=== PATIENT | male | born 1950 | race African-American/Black ===

== ENCOUNTER 2017-03-02 15:46 | Inpatient (IN) | payer OTHER ==
[~2017-03-02] VITALS: Ht 180.3 cm; Wt 81.3 kg
[~2017-03-02 15:46] MED LIST: AMLODIPINE BESY10 MG PO; FLEXERIL10 MG; FLEXERIL10 MG PO; METHADONE1 MG/1 ML PO; METOPROLOL SUC100 MG PO; MOTRIN600 MG PO; MOTRIN800 MG PO; NAPROSYN500 MG PO; NORVASC10 MG PO; PERCOCET 5/31 TABLET PO; TRAMADOL HCL50 MG PO; ULTRAM50 MG PO; VICODIN 5-3001 EACH PO
[2017-03-02 18:29] LABS: HEMATOCRIT 27.7 % (38.0-50.0); MCH 25.2 PG (29.0-34.0); MCHC 32.9 G/DL (30.0-36.0); MCV 76.7 FL (86-99); PLATELET COUNT 286 K/uL (156-360); RBC DIS.WIDTH-CV 16.2 % (11.8-14.6); RBC DIS.WIDTH-SD 45.4 % (39-53); RED BLOOD COUNT 3.61 M/uL (4.00-5.50); WHITE BLOOD COUNT 10.8 K/uL (4.1-10.2)
[2017-03-02 18:48] LABS: CHLORIDE 99 mEq/L (99-109); POTASSIUM 3.5 mEq/L (3.7-5.4); SODIUM 133 mEq/L (136-147)
[2017-03-02 18:50] LABS: GLUCOSE 72 mg/dL (70-99)
[2017-03-02 18:51] LABS: ANION GAP 5 MEQ/L (2-14)
[2017-03-02 18:52] LABS: TOTAL BILIRUBIN 0.7 mg/dL (0.0-1.0)
[2017-03-02 18:54] LABS: ALKALINE PHOSPHATASE 86 IU/L (3-129); GFR ESTIMATE (CALCULATED) > 59 mL/min/
[2017-03-02 18:55] LABS: UREA NITROGEN (BUN) 9 mg/dL (9-23)
[2017-03-02 20:20] LABS: TROP-I INTERPRETATION NEGATIVE; TROPONIN-I < 0.01 ng/mL (0.0-0.30)
[2017-03-02 23:14] VITALS: BP 189/86
[2017-03-02 23:19] LABS: MAGNESIUM 1.9 mg/dl (1.3-2.7); SAMPLE HEMOLYSIS CHECK 0; SAMPLE ICTERIC CHECK 0; SAMPLE LIPEMIA CHECK 1
[2017-03-02 23:25] LABS: SERUM ETHYL ALCOHOL 12 mg/dL
[2017-03-03] VITALS (15 sets, daily range): BP systolic 160–185; BP diastolic 76–95
[2017-03-03 08:13] LABS: ADD MIUA? NO; BILIRUBIN NEGATIVE; BLOOD NEGATIVE; COLOR STRAW ((YELLOW)); GLUCOSE (STRIP) NEGATIVE; KETONES NEGATIVE; LEUKOCYTES NEGATIVE; NITRITE NEGATIVE; PROTEIN (STRIP) NEGATIVE; SPECIFIC GRAVITY 1.005 (1.000-1.030); UCUL ADDED? NO; UROBILINOGEN 0.2 MG/DL (0.2-1.0)
[2017-03-03 08:36] LABS: AMPHETAMINES QUANT VALUE 0 NG/ML; BARBITUATES QUANT VALUE 0 NG/ML; BENZODIAZEPINES QUANT VALUE 0 NG/ML; BENZODIAZEPINES, URINE SCREEN Negative (200 ng/mL); MARIJUANA QUANT VALUE 0 NG/ML; OPIATES QUANTITATIVE VALUE 0 NG/ML; PHENCYCLIDINE QUANT VALUE 0 NG/ML
[2017-03-03 09:02] LABS: HEMATOCRIT 29.7 % (38.0-50.0); MCV 78.2 FL (86-99)
[2017-03-03 10:05] LABS: ANION GAP 7 MEQ/L (2-14); CHLORIDE 97 MEQ/L (99-109); GFR ESTIMATE (CALCULATED) > 59 mL/min/; GLUCOSE 86 mg/dL (70-99); MAGNESIUM 1.7 mg/dl (1.3-2.7); POTASSIUM 3.4 MEQ/L (3.7-5.4); SAMPLE HEMOLYSIS CHECK 0; SAMPLE ICTERIC CHECK 0; SAMPLE LIPEMIA CHECK 0; SODIUM 133 MEQ/L (136-147); UREA NITROGEN (BUN) 10 mg/dL (9-23)
[2017-03-03 14:19] LABS: HEMATOCRIT 33.6 % (38.0-50.0); MCH 26.1 PG (29.0-34.0); MCV 78.9 FL (86-99); MEAN PLAT.VOLUME 8.9 uM^3 (9.0-12.4); PLATELET COUNT 324 K/uL (156-360); RBC DIS.WIDTH-SD 48.2 % (39-53); RED BLOOD COUNT 4.26 M/uL (4.00-5.50); WHITE BLOOD COUNT 10.7 K/uL (4.1-10.2)
[2017-03-03 14:50] LABS: IRON 27 MCG/DL (35-150)
[2017-03-03 15:03] LABS: FERRITIN 103 NG/ML (22-322)
[2017-03-03 20:28] LABS: HEMATOCRIT 32.8 % (38.0-50.0)
[2017-03-04 00:53] VITALS: BP 145/68
[2017-03-04 07:38] VITALS: BP 177/81
[2017-03-04 09:34] LABS: HEMATOCRIT 34.7 % (38.0-50.0); MCH 25.4 PG (29.0-34.0); MCHC 32.9 G/DL (30.0-36.0); MCV 77.3 FL (86-99); MEAN PLAT.VOLUME 8.8 uM^3 (9.0-12.4); PLATELET COUNT 365 K/uL (156-360); RBC DIS.WIDTH-CV 16.8 % (11.8-14.6); RED BLOOD COUNT 4.49 M/uL (4.00-5.50)
[2017-03-04 10:04] LABS: ANION GAP 10 MEQ/L (2-14); CHLORIDE 99 MEQ/L (99-109); GFR ESTIMATE (CALCULATED) > 59 mL/min/; GLUCOSE 78 mg/dL (70-99); POTASSIUM 3.7 MEQ/L (3.7-5.4); SAMPLE HEMOLYSIS CHECK 0; SAMPLE ICTERIC CHECK 0; SAMPLE LIPEMIA CHECK 0; SODIUM 136 MEQ/L (136-147); UREA NITROGEN (BUN) 9 mg/dL (9-23)
[2017-03-04 11:21] VITALS: BP 156/90
[2017-03-04 15:40] VITALS: BP 160/79
[2017-03-04 20:47] VITALS: BP 166/90
[2017-03-04 21:23] LABS: HEMATOCRIT 35.3 % (38.0-50.0); MCV 78.8 FL (86-99)
[2017-03-04 23:31] VITALS: BP 152/92
[2017-03-05 07:13] LABS: EOSINOPHIL (%) 1.6 % (0-5); EOSINOPHIL COUNT 0.2 K/uL (0-0.3); HEMATOCRIT 33.5 % (38.0-50.0); IMMATURE GRANULOCYTE (%) 0.5 % (0.0-0.7); IMMATURE GRANULOCYTE COUNT 0.1 K/uL; INSTRUMENT ABS NEUTROPHIL CT 7.1 K/uL; LYMPHOCYTE COUNT 1.6 K/uL (1.0-2.8); MCH 26.8 PG (29.0-34.0); MCV 78.6 FL (86-99); MEAN PLAT.VOLUME 8.8 uM^3 (9.0-12.4); MONOCYTE (%) 10.5 % (3-12); MONOCYTE COUNT 1.1 K/uL (0-0.8); NEUTROPHIL (%) 71.4 % (45-76); NEUTROPHIL COUNT 7.1 K/uL (1.8-6.4); PLATELET COUNT 339 K/uL (156-360); RBC DIS.WIDTH-CV 17.3 % (11.8-14.6); RBC DIS.WIDTH-SD 48.9 % (39-53); RED BLOOD COUNT 4.26 M/uL (4.00-5.50)
[2017-03-05 07:17] VITALS: BP 190/86
[2017-03-05 07:22] VITALS: BP 175/89
[2017-03-05 07:45] LABS: ANION GAP 8 MEQ/L (2-14); CHLORIDE 98 MEQ/L (99-109); GFR ESTIMATE (CALCULATED) > 59 mL/min/; GLUCOSE 76 mg/dL (70-99); POTASSIUM 3.6 MEQ/L (3.7-5.4); SAMPLE HEMOLYSIS CHECK 0; SAMPLE ICTERIC CHECK 0; SAMPLE LIPEMIA CHECK 0; SODIUM 136 MEQ/L (136-147); UREA NITROGEN (BUN) 10 mg/dL (9-23)
[2017-03-05] MEDS ORDERED: HYDROCHLOROTHIA25 MG PO (12:21)
[2017-03-05] MEDS ORDERED: AMLODIPINE BESYL5 MG PO (12:21)
[2017-03-05] MEDS ORDERED: LISINOPRIL10 MG PO (12:21)
[2017-03-05] MEDS ORDERED: K-DUR20 MEQ PO (12:21)
[2017-03-05] MEDS ORDERED: PANTOPRAZOLE SO40 MG PO (12:21)
[2017-03-05 12:33] VITALS: BP 183/82
[2017-03-07 10:11] LABS: HCV RNA (LOG IU/mL) 5.97 (<1.18)
== END 2017-03-05 15:16 | disposition home or self-care (01) | DRG 378 ==
LOC: EME 15:46 → EDOF 21:56 → 5WEST 22:50
PROVIDERS: Emergency Medicine; Nurse Practitioner Family; Physician Assistant Medical; Specialist; Student in an Organized Health Care Education/Training Program
PROC: 30233N1 Transfusion of Nonautologous Red Blood Cells into Peripheral Vein, Percutaneous Approach (ICD-10-PCS; principal; 2017-03-03)
DX: K92.2 Gastrointestinal hemorrhage, unspecified (principal); E87.70 Fluid overload, unspecified; B18.2 Chronic viral hepatitis C; F17.200 Nicotine dependence, unspecified, uncomplicated; E87.6 Hypokalemia; E87.1 Hypo-osmolality and hyponatremia; E88.09 Other disorders of plasma-protein metabolism, not elsewhere classified; F11.20 Opioid dependence, uncomplicated; D50.0 Iron deficiency anemia secondary to blood loss (chronic); I10 Essential (primary) hypertension; J98.11 Atelectasis
CPT/HCPCS: 71020; 80048; 80053; 80306 90; 81003; 82272; 82607; 82728; 82746; 83540; 83735; 83880; 84466; 84484; 85014; 85018; 85025; 85027; 86900; 86901; 86920; 87522 90; 93005; 93306; 94640; 99281; 99284; C9113; G0378; G0480; J0360; J1940; P9016

== ENCOUNTER 2017-03-28 14:46 | Inpatient (IN) | payer OTHER ==
[~2017-03-28] VITALS: Ht 180.3 cm; Wt 82.1 kg
[~2017-03-28 14:46] MED LIST changes: +AMLODIPINE BESYL5 MG PO; +HYDROCHLOROTHIA25 MG PO; +K-DUR20 MEQ PO; +LISINOPRIL10 MG PO; +PANTOPRAZOLE SO40 MG PO
[2017-03-28 16:04] LABS: ADD MIUA? YES; BILIRUBIN NEGATIVE; BLOOD NEGATIVE; COLOR YELLOW ((YELLOW)); GLUCOSE (STRIP) NEGATIVE; KETONES NEGATIVE; LEUKOCYTES TRACE; NITRITE NEGATIVE; PROTEIN (STRIP) 30; SPECIFIC GRAVITY 1.012 (1.000-1.030)
[2017-03-28 16:08] LABS: BACTERIA RARE /HPF; CALCIUM OXALATE CRYSTALS 2+ /HPF; EPITHELIAL CELLS RARE /HPF; HYALINE CASTS 20-30 /LPF; MUCUS TRACE /LPF; RED BLOOD CELLS 0-5 /HPF (0-5); UCUL ADDED? NO; WHITE BLOOD CELLS 0-5 /HPF (0-5)
[2017-03-28 16:09] LABS: HEMATOCRIT 26.2 % (38.0-50.0); MCH 25.9 PG (29.0-34.0); MCHC 33.6 G/DL (30.0-36.0); MCV 77.1 FL (86-99); MEAN PLAT.VOLUME 8.5 uM^3 (9.0-12.4); PLATELET COUNT 309 K/uL (156-360); RBC DIS.WIDTH-SD 47.8 % (39-53); WHITE BLOOD COUNT 11.5 K/uL (4.1-10.2)
[2017-03-28 16:11] LABS: CHLORIDE 90 mEq/L (99-109); POTASSIUM 2.7 mEq/L (3.7-5.4); SODIUM 129 mEq/L (136-147)
[2017-03-28 16:13] LABS: GLUCOSE 96 mg/dL (70-99)
[2017-03-28 16:14] LABS: ANION GAP 9 MEQ/L (2-14)
[2017-03-28 16:15] LABS: TOTAL BILIRUBIN 0.4 mg/dL (0.0-1.0)
[2017-03-28 16:16] LABS: ALKALINE PHOSPHATASE 87 IU/L (3-129)
[2017-03-28 16:17] LABS: GFR ESTIMATE (CALCULATED) > 59 mL/min/
[2017-03-28 16:18] LABS: UREA NITROGEN (BUN) 13 mg/dL (9-23)
[2017-03-28 18:47] LABS: INTER. NORMALIZED RATIO 1.3; PROTHROMBIN TIME 14.5 SEC (10.2-12.9)
[2017-03-28 18:49] LABS: PTT 34.6 SEC (25-37)
[2017-03-28 18:58] LABS: AMPHETAMINE NEGATIVE (500 ng/mL); BARBITURATES NEGATIVE (200 ng/mL); BENZODIAZEPINES NEGATIVE (150 ng/mL); COCAINE NEGATIVE (150 ng/mL); METHADONE PRESUMPTIVE POSITIVE (200 ng/mL); METHAMPHETAMINE NEGATIVE (500 ng/mL); OPIATES (MORPHINE) NEGATIVE (100 ng/mL); OXYCODONE NEGATIVE (100 ng/mL); PHENCYCLIDINE NEGATIVE (25 ng/mL); PROPOXYPHENE NEGATIVE (300 ng/mL); THC CANNABINOIDS NEGATIVE (50 ng/mL); TRICYCLIC ANTIDEPRESSANTS NEGATIVE (300 ng/mL)
[2017-03-28 18:59] LABS: INTERNAL CONTROLS VALID? YES
[2017-03-28] MEDS ORDERED: LISINOPRIL40 MG PO (20:33)
[2017-03-28] MEDS ORDERED: PROTONIX40 MG PO (20:33)
[2017-03-28] MEDS ORDERED: FUROSEMIDE20 MG PO (20:33)
[2017-03-28 23:25] LABS: HEMATOCRIT 26.2 % (38.0-50.0); MCH 25.6 PG (29.0-34.0); MCHC 33.6 G/DL (30.0-36.0); MCV 76.2 FL (86-99); MEAN PLAT.VOLUME 8.5 uM^3 (9.0-12.4); PLATELET COUNT 327 K/uL (156-360); RBC DIS.WIDTH-CV 16.8 % (11.8-14.6); RBC DIS.WIDTH-SD 46.5 % (39-53); RED BLOOD COUNT 3.44 M/uL (4.00-5.50); WHITE BLOOD COUNT 11.3 K/uL (4.1-10.2)
[2017-03-29] VITALS (14 sets, daily range): BP systolic 120–184; BP diastolic 61–91
[2017-03-29 03:50] LABS: TROP-I INTERPRETATION NEGATIVE; TROPONIN-I < 0.01 ng/mL (0.0-0.30)
[2017-03-29 07:03] LABS: HEMATOCRIT 25.3 % (38.0-50.0); MCV 77.4 FL (86-99)
[2017-03-29 07:34] LABS: TROP-I INTERPRETATION NEGATIVE; TROPONIN-I < 0.01 ng/mL (0.0-0.30)
[2017-03-29 09:23] LABS: ANION GAP 10 MEQ/L (2-14); CHLORIDE 97 MEQ/L (99-109); SAMPLE HEMOLYSIS CHECK 0; SAMPLE ICTERIC CHECK 0; SAMPLE LIPEMIA CHECK 0
[2017-03-29 09:28] LABS: GFR ESTIMATE (CALCULATED) > 59 mL/min/; GLUCOSE 97 mg/dL (70-99); UREA NITROGEN (BUN) 10 mg/dL (9-23)
[2017-03-29 09:36] LABS: POTASSIUM 3.4 MEQ/L (3.7-5.4); SODIUM 136 MEQ/L (136-147)
[2017-03-29 13:41] LABS: TROP-I INTERPRETATION NEGATIVE; TROPONIN-I < 0.01 ng/mL (0.0-0.30)
[2017-03-29 20:36] LABS: HEMATOCRIT 33.1 % (38.0-50.0); MCV 79.6 FL (86-99)
[2017-03-30 03:37] VITALS: BP 153/71
[2017-03-30 06:37] LABS: EOSINOPHIL (%) 0.4 % (0-5); HEMATOCRIT 30.3 % (38.0-50.0); IMMATURE GRANULOCYTE (%) 0.5 % (0.0-0.7); IMMATURE GRANULOCYTE COUNT 0.1 K/uL; INSTRUMENT ABS NEUTROPHIL CT 8.1 K/uL; LYMPHOCYTE COUNT 1.4 K/uL (1.0-2.8); MCV 79.3 FL (86-99); MEAN PLAT.VOLUME 8.8 uM^3 (9.0-12.4); MONOCYTE (%) 12.1 % (3-12); MONOCYTE COUNT 1.3 K/uL (0-0.8); NEUTROPHIL (%) 74.3 % (45-76); NEUTROPHIL COUNT 8.1 K/uL (1.8-6.4); PLATELET COUNT 291 K/uL (156-360); RBC DIS.WIDTH-CV 17.2 % (11.8-14.6); RBC DIS.WIDTH-SD 49.5 % (39-53); RED BLOOD COUNT 3.82 M/uL (4.00-5.50); WHITE BLOOD COUNT 10.8 K/uL (4.1-10.2)
[2017-03-30 07:26] LABS: ANION GAP 7 MEQ/L (2-14); CHLORIDE 97 MEQ/L (99-109); GFR ESTIMATE (CALCULATED) > 59 mL/min/; MAGNESIUM 1.6 mg/dl (1.3-2.7); POTASSIUM 3.6 MEQ/L (3.7-5.4); SAMPLE HEMOLYSIS CHECK 0; SAMPLE ICTERIC CHECK 0; SAMPLE LIPEMIA CHECK 0; SODIUM 135 MEQ/L (136-147); UREA NITROGEN (BUN) 9 mg/dL (9-23)
[2017-03-30 07:36] LABS: GLUCOSE 56 mg/dL (70-99)
[2017-03-30 07:44] VITALS: BP 136/77
[2017-03-30 12:04] VITALS: BP 153/78
[2017-03-30 15:37] VITALS: BP 149/86
[2017-03-30 19:53] LABS: HEMATOCRIT 31.3 % (38.0-50.0); MCV 78.8 FL (86-99)
[2017-03-30 22:35] VITALS: BP 144/83
[2017-03-31 06:08] LABS: EOSINOPHIL (%) 0.7 % (0-5); EOSINOPHIL COUNT 0.1 K/uL (0-0.3); HEMATOCRIT 30.9 % (38.0-50.0); IMMATURE GRANULOCYTE (%) 0.4 % (0.0-0.7); INSTRUMENT ABS NEUTROPHIL CT 7.6 K/uL; LYMPHOCYTE COUNT 1.1 K/uL (1.0-2.8); MCH 25.9 PG (29.0-34.0); MCHC 32.4 G/DL (30.0-36.0); MCV 80.1 FL (86-99); MONOCYTE (%) 11.7 % (3-12); MONOCYTE COUNT 1.2 K/uL (0-0.8); NEUTROPHIL COUNT 7.6 K/uL (1.8-6.4); RBC DIS.WIDTH-CV 17.3 % (11.8-14.6); RBC DIS.WIDTH-SD 50.5 % (39-53); RED BLOOD COUNT 3.86 M/uL (4.00-5.50)
[2017-03-31 06:46] LABS: ALKALINE PHOSPHATASE 73 IU/L (3-129); ANION GAP 6 MEQ/L (2-14); CHLORIDE 98 MEQ/L (99-109); DIRECT BILIRUBIN 0.2 mg/dL (0.0-0.3); GFR ESTIMATE (CALCULATED) > 59 mL/min/; SAMPLE HEMOLYSIS CHECK 0; SAMPLE ICTERIC CHECK 0; SAMPLE LIPEMIA CHECK 0; SODIUM 132 MEQ/L (136-147); TOTAL BILIRUBIN 0.6 MG/DL (0.0-1.0); TRIGLYCERIDES 70 MG/DL (Normal: <150); UREA NITROGEN (BUN) 10 mg/dL (9-23)
[2017-03-31 06:55] LABS: GLUCOSE 87 mg/dL (70-99); MAGNESIUM 1.9 mg/dl (1.3-2.7)
[2017-03-31 07:08] VITALS: BP 121/89
[2017-03-31 07:49] LABS: MEAN PLAT.VOLUME 9.5 uM^3 (9.0-12.4); PLAT.SUFFICIENCY ADEQUATE; PLATELET COUNT 298 K/uL (156-360)
[2017-03-31 08:07] LABS: HEMATOCRIT 31.6 % (38.0-50.0); MCV 78.8 FL (86-99)
[2017-03-31 09:51] VITALS: BP 143/83
[2017-03-31 20:05] LABS: MCV 79.4 FL (86-99)
[2017-03-31 21:59] LABS: HEMATOCRIT 29.2 % (38.0-50.0); MCV 79.8 FL (86-99)
[2017-03-31 23:42] VITALS: BP 156/84
[2017-04-01] MEDS ORDERED: LISINOPRIL40 MG PO (00:40)
[2017-04-01] MEDS ORDERED: METHADONE1 MG/1 ML PO (00:41)
[2017-04-01] MEDS ORDERED: HYDROCHLOROTHIA25 MG PO (00:42)
[2017-04-01] MEDS ORDERED: PROTONIX40 MG PO (00:42)
[2017-04-01] MEDS ORDERED: FUROSEMIDE20 MG PO (00:42)
== END 2017-04-01 01:54 | disposition short-term general hospital (02) | DRG 375 ==
LOC: RME 14:46 → EME 14:46 → EDOF 22:26 → 5EAST 22:26 → ENRESERV 22:34 → 5EAST 03-29 00:01
PROVIDERS: Hospitalist; Internal Medicine; Physician Assistant; Physician Assistant Surgical
PROC: 30233N1 Transfusion of Nonautologous Red Blood Cells into Peripheral Vein, Percutaneous Approach (ICD-10-PCS; principal; 2017-03-29)
PROC: 0DBN8ZX Excision of Sigmoid Colon, Via Natural or Artificial Opening Endoscopic, Diagnostic (ICD-10-PCS; principal; 2017-03-29)
PROC: 3E0336Z Introduction of Nutritional Substance into Peripheral Vein, Percutaneous Approach (ICD-10-PCS; 2017-03-30)
DX: C18.7 Malignant neoplasm of sigmoid colon (principal); C78.7 Secondary malignant neoplasm of liver and intrahepatic bile duct; B18.2 Chronic viral hepatitis C; K92.2 Gastrointestinal hemorrhage, unspecified; I10 Essential (primary) hypertension; F17.210 Nicotine dependence, cigarettes, uncomplicated; K72.90 Hepatic failure, unspecified without coma; D62 Acute posthemorrhagic anemia; R63.4 Abnormal weight loss; Z68.25 Body mass index [BMI] 25.0-25.9, adult; E87.1 Hypo-osmolality and hyponatremia; E87.6 Hypokalemia; F11.20 Opioid dependence, uncomplicated
CPT/HCPCS: 70450; 74020; 74177; 76937; 80048; 80053; 80306 90; 81003; 82140; 82248; 82378; 82948; 83735; 84100; 84134; 84478; 84484; 84630 90; 85014; 85018; 85025; 85027; 85610; 85730; 86900; 86901; 86920; 88305; 99281; 99285; C9113; J3475; J3480; J7030; J7120; P9016

== ENCOUNTER 2017-04-07 15:17 | Emergency (ER) | payer OTHER ==
[~2017-04-07] VITALS: Ht 180.3 cm; Wt 72.2 kg
[~2017-04-07 15:17] MED LIST changes: +FUROSEMIDE20 MG PO; +LISINOPRIL40 MG PO; +PROTONIX40 MG PO
[2017-04-07 16:04] VITALS: BP 175/85
== END 2017-04-07 16:17 | disposition home or self-care (01) ==
LOC: EME 15:17
DX: Z76.0 Encounter for issue of repeat prescription (principal); F11.20 Opioid dependence, uncomplicated; C34.90 Malignant neoplasm of unspecified part of unspecified bronchus or lung; C22.9 Malignant neoplasm of liver, not specified as primary or secondary; I11.0 Hypertensive heart disease with heart failure; I50.9 Heart failure, unspecified; F17.200 Nicotine dependence, unspecified, uncomplicated
CPT/HCPCS: 99281; 99284

== ENCOUNTER 2017-08-13 09:17 | Emergency (ER) | payer OTHER ==
[~2017-08-13] VITALS: Ht 180.3 cm; Wt 80.7 kg
[~2017-08-13 09:17] MED LIST changes: +COMPAZINE10 MG PO; +FEOSOL325 MG PO; +ONE DAILY ESSE1 EACH PO; +PRINIVIL10 MG PO; +ZUPLENZ8 MG PO
[2017-08-13 13:13] VITALS: BP 155/97
[2017-08-14] MEDS ORDERED: DULCOLAX5 MG PO (05:23)
== END 2017-08-13 13:44 | disposition home or self-care (01) ==
LOC: EME 09:17
DX: Z43.3 Encounter for attention to colostomy (principal); Z85.038 Personal history of other malignant neoplasm of large intestine; Z90.49 Acquired absence of other specified parts of digestive tract; I10 Essential (primary) hypertension; F17.200 Nicotine dependence, unspecified, uncomplicated

== ENCOUNTER 2017-08-14 02:45 | Observation (INO) | payer OTHER ==
[~2017-08-14] VITALS: Ht 180.3 cm; Wt 65.3 kg
[2017-08-14] VITALS (12 sets, daily range): BP systolic 160–196; BP diastolic 74–945
[2017-08-14 05:04] LABS: HEMATOCRIT 20.9 % (38.0-50.0); MCH 28.2 PG (29.0-34.0); MCHC 33.5 G/DL (30.0-36.0); MCV 84.3 FL (86-99); RBC DIS.WIDTH-CV 15.4 % (11.8-14.6); RBC DIS.WIDTH-SD 47.3 % (39-53); RED BLOOD COUNT 2.48 M/uL (4.00-5.50); WHITE BLOOD COUNT 15.9 K/uL (4.1-10.2)
[2017-08-14 05:05] LABS: PLATELET COUNT 368 K/uL (156-360)
[2017-08-14 05:14] LABS: CHLORIDE 101 mEq/L (99-109); POTASSIUM 3.7 mEq/L (3.7-5.4); SODIUM 134 mEq/L (136-147)
[2017-08-14 05:16] LABS: GLUCOSE 113 mg/dL (70-99)
[2017-08-14 05:17] LABS: ANION GAP 6 MEQ/L (2-14)
[2017-08-14 05:18] LABS: TOTAL BILIRUBIN 0.4 mg/dL (0.0-1.0)
[2017-08-14 05:20] LABS: ALKALINE PHOSPHATASE 194 IU/L (3-129); GFR ESTIMATE (CALCULATED) > 59 mL/min/ (58.99-99999)
[2017-08-14 05:21] LABS: UREA NITROGEN (BUN) 13 mg/dL (9-23)
[2017-08-14 05:23] LABS: LIPASE 35 U/L (1.0-51.0)
[2017-08-14] MEDS ORDERED: DULCOLAX5 MG PO (05:23)
[2017-08-14 05:34] LABS: INTER. NORMALIZED RATIO 1.3
[2017-08-14 05:36] LABS: PTT 31.9 SEC (25-37)
[2017-08-15 06:00] LABS: HEMATOCRIT 29.7 % (38.0-50.0); MCV 84.9 FL (86-99); MEAN PLAT.VOLUME 8.7 uM^3 (9.0-12.4); PLATELET COUNT 336 K/uL (156-360); RBC DIS.WIDTH-SD 45.6 % (39-53); WHITE BLOOD COUNT 17.8 K/uL (4.1-10.2)
[2017-08-15 08:30] VITALS: BP 179/92
[2017-08-15] MEDS ORDERED: NICOTINE PATCH1 EAC2 TD (10:50)
[2017-08-15 11:08] VITALS: BP 177/90
[2017-08-15] MEDS ORDERED: METHADONE1 MG/1 ML PO (11:53)
[2017-08-15 13:15] VITALS: BP 170/89
[2017-08-15] MEDS ORDERED: LISINOPRIL40 MG PO (13:43)
== END 2017-08-15 15:01 | disposition home or self-care (01) ==
LOC: EME 02:45 → EDOF 08:06 → 5WEST 08:06 → ENRESERV 08:07 → 5WEST 11:32 → ENPENDDIS 08-15 → 5WEST 08-15 15:01
PROVIDERS: Emergency Medicine; Internal Medicine
PROC: 30230N1 Transfusion of Nonautologous Red Blood Cells into Peripheral Vein, Open Approach (ICD-10-PCS; principal; 2017-08-14)
DX: D50.9 Iron deficiency anemia, unspecified (principal); G89.3 Neoplasm related pain (acute) (chronic); C18.9 Malignant neoplasm of colon, unspecified; C78.7 Secondary malignant neoplasm of liver and intrahepatic bile duct; Z93.3 Colostomy status; Z90.49 Acquired absence of other specified parts of digestive tract; M79.89 Other specified soft tissue disorders; F17.210 Nicotine dependence, cigarettes, uncomplicated; F11.20 Opioid dependence, uncomplicated; D72.829 Elevated white blood cell count, unspecified; Z79.01 Long term (current) use of anticoagulants; K59.00 Constipation, unspecified
CPT/HCPCS: 71010; 74022; 80053; 81003; 83690; 85027; 85610; 85730; 86850; 86900; 86901; 86920; 87040; 87801; 99281; 99285; G0378; G8978 GP CJ; G8979 GP CI; G8980 CJ; G8987 GO CJ; G8988 CI; G8989 CJ; J1650; J2270; J7030; P9016; S0028

== ENCOUNTER 2017-08-18 15:12 | Emergency (ER) | payer OTHER ==
[~2017-08-18] VITALS: Ht 180.3 cm; Wt 64.1 kg
[~2017-08-18 15:12] MED LIST changes: +DULCOLAX5 MG PO; +NICOTINE PATCH1 EAC2 TD
[2017-08-18 16:50] LABS: HEMATOCRIT 26.1 % (38.0-50.0); MCH 28.7 PG (29.0-34.0); MCHC 33.7 G/DL (30.0-36.0); MEAN PLAT.VOLUME 8.8 uM^3 (9.0-12.4); PLATELET COUNT 259 K/uL (156-360); RBC DIS.WIDTH-CV 15.5 % (11.8-14.6); RBC DIS.WIDTH-SD 47.8 % (39-53); RED BLOOD COUNT 3.07 M/uL (4.00-5.50); WHITE BLOOD COUNT 15.4 K/uL (4.1-10.2)
[2017-08-18 17:07] LABS: ANION GAP 7 MEQ/L (2-14); CHLORIDE 98 MEQ/L (99-109); DIRECT BILIRUBIN 0.5 mg/dL (0.0-0.3); POTASSIUM 3.1 MEQ/L (3.7-5.4); SAMPLE HEMOLYSIS CHECK 0; SAMPLE ICTERIC CHECK 0; SAMPLE LIPEMIA CHECK 0; SODIUM 134 MEQ/L (136-147); TOTAL BILIRUBIN 0.9 MG/DL (0.0-1.0)
[2017-08-18 17:13] LABS: ALKALINE PHOSPHATASE 166 IU/L (3-129); GFR ESTIMATE (CALCULATED) > 59 mL/min/ (58.99-99999); GLUCOSE 93 mg/dL (70-99); LIPASE 20 U/L (1.0-51.0)
[2017-08-18 17:15] LABS: TROP-I INTERPRETATION NEGATIVE; TROPONIN-I 0.01 ng/mL (0.0-0.30)
[2017-08-18 17:20] LABS: UREA NITROGEN (BUN) 23 mg/dL (9-23)
[2017-08-18] MEDS ORDERED: OXYCODONE HCL10 MG PO (20:46)
[2017-08-19 00:56] VITALS: BP 152/78
== END 2017-08-19 01:09 | disposition home or self-care (01) ==
LOC: EME 15:12
PROVIDERS: Emergency Medicine
DX: K91.872 Postprocedural seroma of a digestive system organ or structure following a digestive system procedure (principal); F11.23 Opioid dependence with withdrawal; Z85.038 Personal history of other malignant neoplasm of large intestine; Z90.49 Acquired absence of other specified parts of digestive tract; B19.20 Unspecified viral hepatitis C without hepatic coma; I11.0 Hypertensive heart disease with heart failure; I50.9 Heart failure, unspecified; F17.200 Nicotine dependence, unspecified, uncomplicated
CPT/HCPCS: 74176; 80048; 80076; 81003; 83605; 83690; 84484; 85027; 87040; 99281; 99285; J2270; J2405; J7030

== ENCOUNTER 2017-08-21 14:33 | Emergency (ER) | payer OTHER ==
[~2017-08-21] VITALS: Ht 180.3 cm; Wt 64.8 kg
[~2017-08-21 14:33] MED LIST changes: +OXYCODONE HCL10 MG PO
[2017-08-21 15:00] LABS: HEMATOCRIT 29.3 % (38.0-50.0); HEMOGLOBIN 9.8 G/DL (12.5-16.6); MCH 28.3 PG (29.0-34.0); MCHC 33.4 G/DL (30.0-36.0); MCV 84.7 FL (86-99); PLATELET COUNT 259 K/uL (156-360); RBC DIS.WIDTH-CV 15.7 % (11.8-14.6); RBC DIS.WIDTH-SD 48.7 % (39-53); RED BLOOD COUNT 3.46 M/uL (4.00-5.50)
[2017-08-21 15:09] LABS: ALBUMIN 2.4 g/dL (3.2-4.8); CHLORIDE 99 mEq/L (99-109); POTASSIUM 3.4 mEq/L (3.7-5.4); SODIUM 135 mEq/L (136-147)
[2017-08-21 15:11] LABS: GLUCOSE 127 mg/dL (70-99); TOTAL PROTEIN 7.6 g/dL (6.4-8.3)
[2017-08-21 15:13] LABS: TOTAL BILIRUBIN 0.8 mg/dL (0.0-1.0)
[2017-08-21 15:14] LABS: SERUM ETHYL ALCOHOL < 10 mg/dL
[2017-08-21 15:15] LABS: ALKALINE PHOSPHATASE 185 IU/L (3-129); CREATININE 0.8 mg/dL (0.6-1.3); GFR ESTIMATE (CALCULATED) > 59 mL/min/ (58.99-99999)
[2017-08-21 15:16] LABS: UREA NITROGEN (BUN) 14 mg/dL (9-23)
[2017-08-21 15:17] LABS: AST (GOT) 18 IU/L (2-34)
[2017-08-21 15:18] LABS: ALT (GPT) 14 IU/L (3-49)
[2017-08-21 19:46] VITALS: BP 171/110
== END 2017-08-21 19:57 | disposition home or self-care (01) ==
LOC: EME 14:33
PROVIDERS: Emergency Medicine
DX: L76.34 Postprocedural seroma of skin and subcutaneous tissue following other procedure (principal); R10.9 Unspecified abdominal pain; Z98.890 Other specified postprocedural states; Z93.3 Colostomy status; Z90.49 Acquired absence of other specified parts of digestive tract; Z85.038 Personal history of other malignant neoplasm of large intestine; I10 Essential (primary) hypertension; F17.200 Nicotine dependence, unspecified, uncomplicated
CPT/HCPCS: 80053; 81003; 85027; 99281; 99284; G0480

== ENCOUNTER 2017-08-27 17:43 | Emergency (ER) | payer OTHER ==
[~2017-08-27] VITALS: Ht 180.3 cm; Wt 61.4 kg
[2017-08-27] MEDS ORDERED: OXYCODONE HCL10 MG PO (19:09)
[2017-08-27 19:41] VITALS: BP 201/130
== END 2017-08-27 19:55 | disposition home or self-care (01) ==
LOC: EME 17:43
DX: R10.9 Unspecified abdominal pain (principal); C18.9 Malignant neoplasm of colon, unspecified; G89.29 Other chronic pain; Z76.0 Encounter for issue of repeat prescription; Z93.3 Colostomy status; F17.200 Nicotine dependence, unspecified, uncomplicated; I11.0 Hypertensive heart disease with heart failure; I50.9 Heart failure, unspecified; B19.20 Unspecified viral hepatitis C without hepatic coma
CPT/HCPCS: 99281; 99284

== ENCOUNTER 2017-09-03 11:06 | Inpatient (IN) | payer OTHER ==
[~2017-09-03] VITALS: Ht 180.3 cm; Wt 59.0 kg
[2017-09-03 11:54] LABS: HEMATOCRIT 28.8 % (38.0-50.0); HEMOGLOBIN 9.8 G/DL (12.5-16.6); MCH 27.9 PG (29.0-34.0); MCV 82.1 FL (86-99); PLATELET COUNT 313 K/uL (156-360); RBC DIS.WIDTH-SD 48.3 % (39-53); RED BLOOD COUNT 3.51 M/uL (4.00-5.50); WHITE BLOOD COUNT 14.3 K/uL (4.1-10.2)
[2017-09-03 15:05] LABS: CHLORIDE 92 mEq/L (99-109); POTASSIUM 2.9 mEq/L (3.7-5.4); SODIUM 130 mEq/L (136-147)
[2017-09-03 15:07] LABS: GLUCOSE 63 mg/dL (70-99)
[2017-09-03 15:08] LABS: TOTAL PROTEIN 7.9 g/dL (6.4-8.3)
[2017-09-03 15:09] LABS: TOTAL BILIRUBIN 0.6 mg/dL (0.0-1.0)
[2017-09-03 15:11] LABS: ALKALINE PHOSPHATASE 196 IU/L (3-129); GFR ESTIMATE (CALCULATED) 19 mL/min/ (58.99-99999)
[2017-09-03 15:12] LABS: UREA NITROGEN (BUN) 62 mg/dL (9-23)
[2017-09-03 15:13] LABS: AST (GOT) 18 IU/L (2-34)
[2017-09-03 15:14] LABS: ALT (GPT) 13 IU/L (3-49)
[2017-09-03 18:31] LABS: APPEARANCE SL.HAZY ((CLEAR)); BILIRUBIN NEGATIVE; BLOOD NEGATIVE; COLOR YELLOW ((YELLOW)); GLUCOSE (STRIP) NEGATIVE; KETONES NEGATIVE; LEUKOCYTES NEGATIVE; NITRITE NEGATIVE; PROTEIN (STRIP) 30; SPECIFIC GRAVITY 1.013 (1.000-1.030); UROBILINOGEN 0.2 MG/DL (0.2-1.0)
[2017-09-03 18:40] LABS: BACTERIA NONE SEEN /HPF; EPITHELIAL CELLS RARE /HPF; HYALINE CASTS 30-40 /LPF; MUCUS TRACE /LPF; RED BLOOD CELLS 0-5 /HPF (0-5); UCUL ADDED? YES
[2017-09-03] MEDS ORDERED: ONE DAILY1 EAC3 PO (20:47)
[2017-09-03] MEDS ORDERED: FISH OIL 1,0001 EAC7 PO (20:47)
[2017-09-03 21:50] LABS: CHLORIDE 95 mEq/L (99-109); POTASSIUM 2.9 mEq/L (3.7-5.4); SODIUM 132 mEq/L (136-147)
[2017-09-03 21:51] LABS: GLUCOSE 71 mg/dL (70-99)
[2017-09-03 21:55] LABS: CREATININE 3.6 mg/dL (0.6-1.3); GFR ESTIMATE (CALCULATED) 22 mL/min/ (58.99-99999)
[2017-09-03 21:56] LABS: UREA NITROGEN (BUN) 60 mg/dL (9-23)
[2017-09-04 09:48] LABS: MAGNESIUM 1.3 mg/dL (1.3-2.7)
[2017-09-04 10:11] LABS: BASOPHIL (%) 0.1 % (0-1); EOSINOPHIL (%) 0.1 % (0-5); HEMATOCRIT 30.6 % (38.0-50.0); HEMOGLOBIN 10.2 G/DL (12.5-16.6); IMMATURE GRANULOCYTE (%) 0.6 % (0.0-0.7); LYMPHOCYTE (%) 7.2 % (15-42); LYMPHOCYTE COUNT 1.1 K/uL (1.0-2.8); MCH 27.9 PG (29.0-34.0); MCHC 33.3 G/DL (30.0-36.0); MCV 83.6 FL (86-99); MONOCYTE (%) 8.1 % (3-12); MONOCYTE COUNT 1.2 K/uL (0-0.8); NEUTROPHIL (%) 83.9 % (45-76); NEUTROPHIL COUNT 12.1 K/uL (1.8-6.4); PLATELET COUNT 316 K/uL (156-360); RBC DIS.WIDTH-SD 48.5 % (39-53); RED BLOOD COUNT 3.66 M/uL (4.00-5.50); WHITE BLOOD COUNT 14.5 K/uL (4.1-10.2)
[2017-09-04 10:14] LABS: ALBUMIN 2.8 g/dL (3.2-4.8); CHLORIDE 99 mEq/L (99-109); SODIUM 132 mEq/L (136-147)
[2017-09-04 10:16] LABS: POTASSIUM 3.7 mEq/L (3.7-5.4); TOTAL PROTEIN 7.2 g/dL (6.4-8.3)
[2017-09-04 10:20] LABS: ALKALINE PHOSPHATASE 209 IU/L (3-129)
[2017-09-04 10:21] LABS: UREA NITROGEN (BUN) 59 mg/dL (9-23)
[2017-09-04 10:22] LABS: AST (GOT) 23 IU/L (2-34); GFR ESTIMATE (CALCULATED) 27 mL/min/ (58.99-99999); GLUCOSE 98 mg/dL (70-99); TOTAL BILIRUBIN 0.4 mg/dL (0.0-1.0)
[2017-09-04 10:23] LABS: ALT (GPT) 14 IU/L (3-49)
[2017-09-04 16:12] VITALS: BP 179/98
[2017-09-04 18:54] LABS: INTER. NORMALIZED RATIO 1.3
[2017-09-04 18:57] LABS: PTT 30.2 SEC (25-37)
[2017-09-05 00:09] VITALS: BP 150/83
[2017-09-05 04:01] LABS: UR CREATININE CONCENTRATION 177.2 MG/DL
[2017-09-05 06:34] LABS: BASOPHIL (%) 0.1 % (0-1); EOSINOPHIL (%) 0.3 % (0-5); HEMATOCRIT 28.7 % (38.0-50.0); HEMOGLOBIN 9.6 G/DL (12.5-16.6); LYMPHOCYTE (%) 8.8 % (15-42); MCH 27.9 PG (29.0-34.0); MCHC 33.4 G/DL (30.0-36.0); MCV 83.4 FL (86-99); MONOCYTE (%) 7.1 % (3-12); MONOCYTE COUNT 0.8 K/uL (0-0.8); NEUTROPHIL (%) 82.7 % (45-76); NEUTROPHIL COUNT 8.9 K/uL (1.8-6.4); PLATELET COUNT 288 K/uL (156-360); RBC DIS.WIDTH-CV 15.9 % (11.8-14.6); RBC DIS.WIDTH-SD 48.3 % (39-53); RED BLOOD COUNT 3.44 M/uL (4.00-5.50); WHITE BLOOD COUNT 10.8 K/uL (4.1-10.2)
[2017-09-05 06:35] LABS: ALBUMIN 2.7 G/DL (3.2-4.8); ALKALINE PHOSPHATASE 181 IU/L (3-129); ALT (GPT) 11 IU/L (3-49); AST (GOT) 18 IU/L (2-34); CHLORIDE 100 MEQ/L (99-109); GFR ESTIMATE (CALCULATED) 43 mL/min/ (58.99-99999); GLUCOSE 80 mg/dL (70-99); MAGNESIUM 1.7 mg/dl (1.3-2.7); POTASSIUM 3.4 MEQ/L (3.7-5.4); SODIUM 135 MEQ/L (136-147); TOTAL BILIRUBIN 0.4 MG/DL (0.0-1.0); TOTAL PROTEIN 6.6 G/DL (6.4-8.3); UREA NITROGEN (BUN) 50 mg/dL (9-23)
[2017-09-05 08:06] VITALS: BP 123/75
[2017-09-05 16:48] VITALS: BP 192/101
[2017-09-05 20:00] VITALS: BP 125/75
[2017-09-06] VITALS: BP 132/78
[2017-09-06 04:00] VITALS: BP 136/77
[2017-09-06 07:44] LABS: CHLORIDE 101 MEQ/L (99-109); GFR ESTIMATE (CALCULATED) > 59 mL/min/ (58.99-99999); GLUCOSE 98 mg/dL (70-99); POTASSIUM 3.8 MEQ/L (3.7-5.4); SODIUM 136 MEQ/L (136-147); UREA NITROGEN (BUN) 33 mg/dL (9-23)
[2017-09-06 07:45] LABS: CREATININE 1.2 MG/DL (0.6-1.3)
[2017-09-06 08:17] VITALS: BP 177/104
[2017-09-06 16:09] VITALS: BP 224/130
[2017-09-06 21:20] VITALS: BP 142/86
[2017-09-07 00:26] VITALS: BP 161/87
[2017-09-07 06:54] LABS: HEMATOCRIT 29.7 % (38.0-50.0); HEMOGLOBIN 9.5 G/DL (12.5-16.6); MCH 27.2 PG (29.0-34.0); MCV 85.1 FL (86-99); PLATELET COUNT 223 K/uL (156-360); RBC DIS.WIDTH-CV 15.9 % (11.8-14.6); RBC DIS.WIDTH-SD 49.2 % (39-53); RED BLOOD COUNT 3.49 M/uL (4.00-5.50)
[2017-09-07] MEDS ORDERED: LOVENOX40 MG/0.4 SC (14:51)
[2017-09-07 16:21] VITALS: BP 173/88
[2017-09-08 00:13] VITALS: BP 178/94
[2017-09-08 08:11] VITALS: BP 147/94
[2017-09-08 09:48] LABS: HEMATOCRIT 32.3 % (38.0-50.0); HEMOGLOBIN 10.4 G/DL (12.5-16.6); MCHC 32.2 G/DL (30.0-36.0); MCV 83.9 FL (86-99); PLATELET COUNT 248 K/uL (156-360); RBC DIS.WIDTH-CV 15.9 % (11.8-14.6); RBC DIS.WIDTH-SD 49.2 % (39-53); RED BLOOD COUNT 3.85 M/uL (4.00-5.50); WHITE BLOOD COUNT 13.4 K/uL (4.1-10.2)
[2017-09-08 10:27] LABS: CHLORIDE 100 MEQ/L (99-109); POTASSIUM 3.8 MEQ/L (3.7-5.4); SODIUM 135 MEQ/L (136-147)
[2017-09-08 11:10] LABS: CREATININE 0.7 MG/DL (0.6-1.3); GFR ESTIMATE (CALCULATED) > 59 mL/min/ (58.99-99999); GLUCOSE 67 mg/dL (70-99); UREA NITROGEN (BUN) 15 mg/dL (9-23)
[2017-09-08 15:20] VITALS: BP 175/88
[2017-09-08 19:50] VITALS: BP 143/93
[2017-09-09 00:41] VITALS: BP 148/87
[2017-09-09 07:06] VITALS: BP 173/88
[2017-09-09 11:01] VITALS: BP 101/56
[2017-09-09] MEDS ORDERED: CARVEDILOL12.5 MG PO (13:34)
[2017-09-09] MEDS ORDERED: FUROSEMIDE20 MG PO (13:34)
[2017-09-09] MEDS ORDERED: DOCUSATE SODIU100 MG PO (13:34)
[2017-09-09] MEDS ORDERED: APRESOLINE50 MG PO (13:34)
[2017-09-09] MEDS ORDERED: POLYETHYLENE GL17 GM PO (13:34)
[2017-09-09] MEDS ORDERED: SENNA LAX8.6 MG PO (13:34)
[2017-09-09] MEDS ORDERED: CIPRO500 MG PO (13:43)
== END 2017-09-09 18:08 | disposition home health service (06) | DRG 683 ==
LOC: EME 11:06 → EDOF 23:17 → ENRESERV 23:20 → 5SOUTH 09-04 15:54 → ENPENDDIS 09-09 → 5SOUTH 09-09 18:08
PROVIDERS: Hospitalist; Internal Medicine; Physician Assistant
DX: N17.9 Acute kidney failure, unspecified (principal); R78.81 Bacteremia; B96.20 Unspecified Escherichia coli [E. coli] as the cause of diseases classified elsewhere; C78.7 Secondary malignant neoplasm of liver and intrahepatic bile duct; C19 Malignant neoplasm of rectosigmoid junction; K91.872 Postprocedural seroma of a digestive system organ or structure following a digestive system procedure; Y84.8 Other medical procedures as the cause of abnormal reaction of the patient, or of later complication, without mention of misadventure at the time of the procedure; I82.412 Acute embolism and thrombosis of left femoral vein; E83.42 Hypomagnesemia; E86.0 Dehydration; E86.1 Hypovolemia; E87.1 Hypo-osmolality and hyponatremia; E87.6 Hypokalemia; R31.9 Hematuria, unspecified; T45.515A Adverse effect of anticoagulants, initial encounter; I16.0 Hypertensive urgency; I11.0 Hypertensive heart disease with heart failure; I50.9 Heart failure, unspecified; R64 Cachexia; R63.4 Abnormal weight loss; Z68.1 Body mass index [BMI] 19.9 or less, adult; K59.00 Constipation, unspecified; B19.20 Unspecified viral hepatitis C without hepatic coma; F11.20 Opioid dependence, uncomplicated; D64.9 Anemia, unspecified; M79.89 Other specified soft tissue disorders; R06.6 Hiccough; D72.829 Elevated white blood cell count, unspecified; Z91.19 Patient's noncompliance with other medical treatment and regimen; F17.210 Nicotine dependence, cigarettes, uncomplicated; Z93.3 Colostomy status
CPT/HCPCS: 74176; 76770; 80048; 80048 91; 80053; 81003; 82140; 82378; 82436; 82570; 83735; 83935; 84300; 85025; 85027; 85610; 85730; 87040; 87077; 87086; 87186; 87801; 90686; 93005; 93970; 99281; 99285; J0696; J1644; J1650; J3475; J3480; J7030; P9047; S0028

== ENCOUNTER 2017-10-29 20:21 | Emergency (ER) | payer OTHER ==
[~2017-10-29] VITALS: Ht 180.3 cm; Wt 67.5 kg
[~2017-10-29 20:21] MED LIST changes: +APRESOLINE50 MG PO; +CARVEDILOL12.5 MG PO; +CIPRO500 MG PO; +DOCUSATE SODIU100 MG PO; +FISH OIL 1,0001 EAC7 PO; +LOVENOX40 MG/0.4 SC; +ONE DAILY1 EAC3 PO; +POLYETHYLENE GL17 GM PO; +SENNA LAX8.6 MG PO
[2017-10-29 21:13] LABS: BASOPHIL (%) 0.4 % (0-1); EOSINOPHIL COUNT 0.1 K/uL (0-0.3); HEMATOCRIT 31.5 % (38.0-50.0); HEMOGLOBIN 10.4 G/DL (12.5-16.6); IMMATURE GRANULOCYTE (%) 0.9 % (0.0-0.7); LYMPHOCYTE (%) 34.8 % (15-42); LYMPHOCYTE COUNT 1.6 K/uL (1.0-2.8); MCH 28.2 PG (29.0-34.0); MCV 85.4 FL (86-99); MONOCYTE (%) 12.4 % (3-12); MONOCYTE COUNT 0.6 K/uL (0-0.8); NEUTROPHIL (%) 49.5 % (45-76); NEUTROPHIL COUNT 2.3 K/uL (1.8-6.4); NRBC (%) 0.4 /100 WBC (0-0); PLATELET COUNT 219 K/uL (156-360); RBC DIS.WIDTH-CV 19.1 % (11.8-14.6); RBC DIS.WIDTH-SD 59.5 % (39-53); RED BLOOD COUNT 3.69 M/uL (4.00-5.50); WHITE BLOOD COUNT 4.6 K/uL (4.1-10.2)
[2017-10-29 21:34] LABS: CHLORIDE 98 mEq/L (99-109); POTASSIUM 3.3 mEq/L (3.7-5.4); SODIUM 134 mEq/L (136-147)
[2017-10-29 21:36] LABS: GLUCOSE 81 mg/dL (70-99)
[2017-10-29 21:39] LABS: CREATININE 0.8 mg/dL (0.6-1.3); GFR ESTIMATE (CALCULATED) > 59 mL/min/ (58.99-99999)
[2017-10-29 21:40] LABS: UREA NITROGEN (BUN) 12 mg/dL (9-23)
[2017-10-29 21:43] LABS: TROP-I INTERPRETATION NEGATIVE; TROPONIN-I < 0.01 ng/mL (0.0-0.30)
[2017-10-29 23:50] VITALS: BP 158/108
== END 2017-10-29 23:51 | disposition home or self-care (01) ==
LOC: EME → EDBD 20:21 → EME 23:51
PROVIDERS: Emergency Medicine
DX: I10 Essential (primary) hypertension (principal); B19.20 Unspecified viral hepatitis C without hepatic coma; F17.200 Nicotine dependence, unspecified, uncomplicated; Z79.891 Long term (current) use of opiate analgesic; Z91.19 Patient's noncompliance with other medical treatment and regimen; Z86.79 Personal history of other diseases of the circulatory system; Z93.3 Colostomy status; Z90.49 Acquired absence of other specified parts of digestive tract; Z85.038 Personal history of other malignant neoplasm of large intestine
CPT/HCPCS: 80048; 83605; 84484; 85025; 93005; 99281; 99285

== ENCOUNTER 2017-12-02 10:12 | Inpatient (IN) | payer OTHER ==
[~2017-12-02] VITALS: Ht 180.3 cm; Wt 65.4 kg
[2017-12-02 11:23] LABS: BASOPHIL (%) 0.2 % (0-1); EOSINOPHIL (%) 0.2 % (0-5); HEMATOCRIT 31.1 % (38.0-50.0); HEMOGLOBIN 10.6 G/DL (12.5-16.6); IMMATURE GRANULOCYTE (%) 0.7 % (0.0-0.7); LYMPHOCYTE COUNT 1.3 K/uL (1.0-2.8); MCHC 34.1 G/DL (30.0-36.0); MCV 82.3 FL (86-99); MONOCYTE (%) 10.7 % (3-12); MONOCYTE COUNT 1.4 K/uL (0-0.8); NEUTROPHIL (%) 78.2 % (45-76); RBC DIS.WIDTH-CV 18.7 % (11.8-14.6); RBC DIS.WIDTH-SD 54.7 % (39-53); RED BLOOD COUNT 3.78 M/uL (4.00-5.50); WHITE BLOOD COUNT 12.8 K/uL (4.1-10.2)
[2017-12-02 11:32] LABS: CHLORIDE 93 mEq/L (99-109); POTASSIUM 3.2 mEq/L (3.7-5.4); SODIUM 135 mEq/L (136-147)
[2017-12-02 11:33] LABS: GLUCOSE 86 mg/dL (70-99)
[2017-12-02 11:37] LABS: CREATININE 0.7 mg/dL (0.6-1.3); GFR ESTIMATE (CALCULATED) > 59 mL/min/ (58.99-99999)
[2017-12-02 11:38] LABS: UREA NITROGEN (BUN) 8 mg/dL (9-23)
[2017-12-02 12:01] LABS: PLAT.SUFFICIENCY ADEQUATE; PLATELET COUNT 223 K/uL (156-360)
[2017-12-02] MEDS ORDERED: OXYCODONE-APAP1 EACH PO (12:28)
[2017-12-02] MEDS ORDERED: COMPAZINE10 MG PO (12:33)
[2017-12-02] MEDS ORDERED: CHLORPROMAZINE25 MG PO (12:34)
[2017-12-02] MEDS ORDERED: PANTOPRAZOLE SO40 MG PO (12:34)
[2017-12-02] MEDS ORDERED: POTASSIUM CHLO20 ME2 PO (12:35)
[2017-12-02 15:00] VITALS: BP 10/92; BP 190/92
[2017-12-02 21:10] VITALS: BP 137/78
[2017-12-03 00:01] VITALS: BP 163/85
[2017-12-03 06:02] LABS: BASOPHIL (%) 0.4 % (0-1); EOSINOPHIL (%) 1.3 % (0-5); EOSINOPHIL COUNT 0.1 K/uL (0-0.3); HEMATOCRIT 30.4 % (38.0-50.0); HEMOGLOBIN 10.2 G/DL (12.5-16.6); IMMATURE GRANULOCYTE (%) 0.6 % (0.0-0.7); LYMPHOCYTE (%) 11.9 % (15-42); MCH 27.5 PG (29.0-34.0); MCHC 33.6 G/DL (30.0-36.0); MCV 81.9 FL (86-99); MONOCYTE (%) 12.7 % (3-12); MONOCYTE COUNT 1.1 K/uL (0-0.8); NEUTROPHIL (%) 73.1 % (45-76); NEUTROPHIL COUNT 6.2 K/uL (1.8-6.4); PLATELET COUNT 229 K/uL (156-360); RBC DIS.WIDTH-CV 18.6 % (11.8-14.6); RBC DIS.WIDTH-SD 55.2 % (39-53); RED BLOOD COUNT 3.71 M/uL (4.00-5.50); WHITE BLOOD COUNT 8.5 K/uL (4.1-10.2)
[2017-12-03 06:25] LABS: CHLORIDE 95 MEQ/L (99-109); CREATININE 0.8 MG/DL (0.6-1.3); GFR ESTIMATE (CALCULATED) > 59 mL/min/ (58.99-99999); SODIUM 135 MEQ/L (136-147); UREA NITROGEN (BUN) 10 mg/dL (9-23)
[2017-12-03 06:38] LABS: GLUCOSE 119 mg/dL (70-99)
[2017-12-03 07:10] VITALS: BP 168/84
[2017-12-03 09:05] LABS: ALBUMIN 2.7 G/DL (3.2-4.8); ALKALINE PHOSPHATASE 130 IU/L (3-129); ALT (GPT) 10 IU/L (3-49); AST (GOT) 16 IU/L (2-34); DIRECT BILIRUBIN 0.1 mg/dL (0.0-0.3); TOTAL BILIRUBIN 0.4 MG/DL (0.0-1.0); TOTAL PROTEIN 6.5 G/DL (6.4-8.3)
[2017-12-03 15:15] VITALS: BP 157/82
[2017-12-03 23:05] VITALS: BP 138/79
[2017-12-04 06:19] LABS: HEMATOCRIT 27.8 % (38.0-50.0); HEMOGLOBIN 9.3 G/DL (12.5-16.6); MCH 27.1 PG (29.0-34.0); MCHC 33.5 G/DL (30.0-36.0); PLATELET COUNT 224 K/uL (156-360); RBC DIS.WIDTH-CV 18.5 % (11.8-14.6); RBC DIS.WIDTH-SD 54.4 % (39-53); RED BLOOD COUNT 3.43 M/uL (4.00-5.50); WHITE BLOOD COUNT 8.4 K/uL (4.1-10.2)
[2017-12-04 06:31] LABS: CHLORIDE 95 MEQ/L (99-109); CREATININE 0.8 MG/DL (0.6-1.3); GFR ESTIMATE (CALCULATED) > 59 mL/min/ (58.99-99999); POTASSIUM 3.2 MEQ/L (3.7-5.4); SODIUM 135 MEQ/L (136-147); UREA NITROGEN (BUN) 10 mg/dL (9-23)
[2017-12-04 06:32] LABS: GLUCOSE 89 mg/dL (70-99)
[2017-12-04 07:38] VITALS: BP 132/74
[2017-12-04] MEDS ORDERED: AMOX TR-K CLV1 EAC4 PO (13:17)
[2017-12-04] MEDS ORDERED: NICOTINE PATCH1 EAC2 TD (13:18)
[2017-12-04] MEDS ORDERED: BACTRIM,SEPT1 TABLET PO (13:18)
== END 2017-12-04 15:11 | disposition home health service (06) | DRG 603 ==
LOC: EME 10:12 → 5EAST 12:47 → EDOF 12:47 → ENRESERV 12:50 → EDOF 12:57 → ENRESERV 13:52 → 5EAST 14:52
PROVIDERS: Emergency Medicine; Internal Medicine
DX: L03.116 Cellulitis of left lower limb (principal); F11.20 Opioid dependence, uncomplicated; C78.7 Secondary malignant neoplasm of liver and intrahepatic bile duct; R78.81 Bacteremia; C19 Malignant neoplasm of rectosigmoid junction; L97.421 Non-pressure chronic ulcer of left heel and midfoot limited to breakdown of skin; L97.411 Non-pressure chronic ulcer of right heel and midfoot limited to breakdown of skin; I82.512 Chronic embolism and thrombosis of left femoral vein; L03.115 Cellulitis of right lower limb; F17.210 Nicotine dependence, cigarettes, uncomplicated; E87.6 Hypokalemia; I89.0 Lymphedema, not elsewhere classified; I10 Essential (primary) hypertension; B96.20 Unspecified Escherichia coli [E. coli] as the cause of diseases classified elsewhere; D50.9 Iron deficiency anemia, unspecified; I87.8 Other specified disorders of veins; Z91.19 Patient's noncompliance with other medical treatment and regimen; Z93.3 Colostomy status; Z90.49 Acquired absence of other specified parts of digestive tract
CPT/HCPCS: 80048; 80076; 83605; 85025; 85027; 87040; 87070; 87075; 87077; 87147; 87186; 87205; 87801; 93971; J0690; J1650

== ENCOUNTER 2017-12-08 13:08 | Emergency (ER) | payer OTHER ==
[~2017-12-08] VITALS: Ht 180.3 cm; Wt 71.0 kg
[~2017-12-08 13:08] MED LIST changes: +AMOX TR-K CLV1 EAC4 PO; +BACTRIM,SEPT1 TABLET PO; +CHLORPROMAZINE25 MG PO; +OXYCODONE-APAP1 EACH PO; +POTASSIUM CHLO20 ME2 PO
[2017-12-08 14:01] LABS: BASOPHIL (%) 0.2 % (0-1); EOSINOPHIL (%) 1.6 % (0-5); EOSINOPHIL COUNT 0.2 K/uL (0-0.3); HEMATOCRIT 27.8 % (38.0-50.0); HEMOGLOBIN 9.3 G/DL (12.5-16.6); IMMATURE GRANULOCYTE (%) 1.1 % (0.0-0.7); LYMPHOCYTE (%) 16.1 % (15-42); LYMPHOCYTE COUNT 1.7 K/uL (1.0-2.8); MCH 27.5 PG (29.0-34.0); MCHC 33.5 G/DL (30.0-36.0); MCV 82.2 FL (86-99); MONOCYTE (%) 13.5 % (3-12); MONOCYTE COUNT 1.4 K/uL (0-0.8); NEUTROPHIL (%) 67.5 % (45-76); NEUTROPHIL COUNT 6.9 K/uL (1.8-6.4); PLATELET COUNT 216 K/uL (156-360); RBC DIS.WIDTH-CV 18.6 % (11.8-14.6); RBC DIS.WIDTH-SD 55.6 % (39-53); RED BLOOD COUNT 3.38 M/uL (4.00-5.50); WHITE BLOOD COUNT 10.2 K/uL (4.1-10.2)
[2017-12-08 14:09] LABS: CHLORIDE 96 mEq/L (99-109); POTASSIUM 3.2 mEq/L (3.7-5.4); SODIUM 134 mEq/L (136-147)
[2017-12-08 14:10] LABS: GLUCOSE 74 mg/dL (70-99)
[2017-12-08 14:14] LABS: CREATININE 0.9 mg/dL (0.6-1.3); GFR ESTIMATE (CALCULATED) > 59 mL/min/ (58.99-99999)
[2017-12-08 14:15] LABS: UREA NITROGEN (BUN) 12 mg/dL (9-23)
[2017-12-08] MEDS ORDERED: PERCOCET 5/31 TABLET PO (15:46)
[2017-12-08 16:22] VITALS: BP 160/73
== END 2017-12-08 16:23 | disposition home or self-care (01) ==
LOC: EME 13:08
PROVIDERS: Emergency Medicine
DX: L03.116 Cellulitis of left lower limb (principal); L03.115 Cellulitis of right lower limb; E87.6 Hypokalemia; I89.0 Lymphedema, not elsewhere classified; I10 Essential (primary) hypertension; C18.9 Malignant neoplasm of colon, unspecified; B19.20 Unspecified viral hepatitis C without hepatic coma; F17.200 Nicotine dependence, unspecified, uncomplicated; Z79.891 Long term (current) use of opiate analgesic; Z93.3 Colostomy status; Z86.14 Personal history of Methicillin resistant Staphylococcus aureus infection; Z91.19 Patient's noncompliance with other medical treatment and regimen; Z92.21 Personal history of antineoplastic chemotherapy; Z86.79 Personal history of other diseases of the circulatory system; Z90.49 Acquired absence of other specified parts of digestive tract; Z98.890 Other specified postprocedural states
CPT/HCPCS: 80048; 85025; 99281; 99283

== ENCOUNTER 2018-01-06 16:48 | Inpatient (IN) | payer OTHER ==
[~2018-01-06] VITALS: Ht 180.3 cm; Wt 63.3 kg
[2018-01-06 18:04] LABS: BASOPHIL (%) 0.2 % (0-1); EOSINOPHIL (%) 0.3 % (0-5); HEMATOCRIT 35.2 % (38.0-50.0); IMMATURE GRANULOCYTE (%) 0.5 % (0.0-0.7); LYMPHOCYTE (%) 18.6 % (15-42); LYMPHOCYTE COUNT 1.1 K/uL (1.0-2.8); MCH 27.5 PG (29.0-34.0); MCHC 34.1 G/DL (30.0-36.0); MCV 80.7 FL (86-99); MONOCYTE (%) 16.7 % (3-12); NEUTROPHIL (%) 63.7 % (45-76); NEUTROPHIL COUNT 3.8 K/uL (1.8-6.4); PLATELET COUNT 258 K/uL (156-360); RBC DIS.WIDTH-CV 18.5 % (11.8-14.6); RBC DIS.WIDTH-SD 53.3 % (39-53); WHITE BLOOD COUNT 5.9 K/uL (4.1-10.2)
[2018-01-06 18:10] LABS: INTER. NORMALIZED RATIO 1.3
[2018-01-06 18:11] LABS: RED BLOOD COUNT 4.36 M/uL (4.00-5.50)
[2018-01-06 18:12] LABS: ALBUMIN 3.7 g/dL (3.2-4.8); CHLORIDE 91 mEq/L (99-109); POTASSIUM 3.1 mEq/L (3.7-5.4); SODIUM 133 mEq/L (136-147)
[2018-01-06 18:13] LABS: PTT 31.1 SEC (25-37)
[2018-01-06 18:15] LABS: GLUCOSE 88 mg/dL (70-99); TOTAL PROTEIN 8.8 g/dL (6.4-8.3)
[2018-01-06 18:17] LABS: TOTAL BILIRUBIN 0.6 mg/dL (0.0-1.0)
[2018-01-06 18:18] LABS: ALKALINE PHOSPHATASE 247 IU/L (3-129); CREATININE 1.9 mg/dL (0.6-1.3); GFR ESTIMATE (CALCULATED) 46 mL/min/ (58.99-99999)
[2018-01-06 18:19] LABS: UREA NITROGEN (BUN) 43 mg/dL (9-23)
[2018-01-06 18:20] LABS: AST (GOT) 19 IU/L (2-34)
[2018-01-06 18:21] LABS: ALT (GPT) 16 IU/L (3-49)
[2018-01-06 18:23] LABS: TROP-I INTERPRETATION NEGATIVE; TROPONIN-I 0.02 ng/mL (0.0-0.30)
[2018-01-06] MEDS ORDERED: CARVEDILOL3.125 MG PO (19:08)
[2018-01-06] MEDS ORDERED: APRESOLINE10 MG PO (19:11)
[2018-01-06] MEDS ORDERED: SENNA8.6 MG PO (19:19)
[2018-01-06 21:41] LABS: HEMOGLOBIN 11.3 G/DL (12.5-16.6); MCH 27.7 PG (29.0-34.0); MCHC 34.2 G/DL (30.0-36.0); MCV 80.9 FL (86-99); PLATELET COUNT 252 K/uL (156-360); RBC DIS.WIDTH-CV 18.6 % (11.8-14.6); RBC DIS.WIDTH-SD 53.1 % (39-53); RED BLOOD COUNT 4.08 M/uL (4.00-5.50); WHITE BLOOD COUNT 6.4 K/uL (4.1-10.2)
[2018-01-06 22:15] LABS: APPEARANCE CLOUDY ((CLEAR)); BILIRUBIN NEGATIVE; BLOOD LARGE; COLOR YELLOW ((YELLOW)); GLUCOSE (STRIP) 50; KETONES NEGATIVE; LEUKOCYTES LARGE; NITRITE NEGATIVE; PROTEIN (STRIP) 100; SPECIFIC GRAVITY 1.013 (1.000-1.030); UROBILINOGEN 0.2 MG/DL (0.2-1.0)
[2018-01-06 22:38] LABS: WHITE BLOOD CELLS TNTC /HPF (0-5)
[2018-01-06 22:39] LABS: BACTERIA 4+ /HPF; EPITHELIAL CELLS NONE SEEN /HPF; MUCUS NONE SEEN /LPF; UCUL ADDED? YES
[2018-01-06 22:40] VITALS: BP 200/120
[2018-01-06 23:26] VITALS: BP 197/114
[2018-01-07] VITALS (8 sets, daily range): BP systolic 124–227; BP diastolic 62–117
[2018-01-07 05:48] LABS: ALBUMIN 3.4 G/DL (3.2-4.8); ALKALINE PHOSPHATASE 201 IU/L (3-129); ALT (GPT) 13 IU/L (3-49); AST (GOT) 18 IU/L (2-34); CHLORIDE 93 MEQ/L (99-109); CREATININE 1.4 MG/DL (0.6-1.3); GFR ESTIMATE (CALCULATED) > 59 mL/min/ (58.99-99999); GLUCOSE 84 mg/dL (70-99); POTASSIUM 3.8 MEQ/L (3.7-5.4); SODIUM 137 MEQ/L (136-147); TOTAL BILIRUBIN 0.6 MG/DL (0.0-1.0); TOTAL PROTEIN 7.9 G/DL (6.4-8.3); UREA NITROGEN (BUN) 35 mg/dL (9-23)
[2018-01-07 20:24] LABS: CHLORIDE 99 MEQ/L (99-109); SODIUM 134 MEQ/L (136-147)
[2018-01-07 20:35] LABS: CREATININE 1.4 MG/DL (0.6-1.3); GFR ESTIMATE (CALCULATED) > 59 mL/min/ (58.99-99999); GLUCOSE 79 mg/dL (70-99); UREA NITROGEN (BUN) 35 mg/dL (9-23)
[2018-01-08 04:00] VITALS: BP 154/88
[2018-01-08 06:25] LABS: BASOPHIL (%) 0.5 % (0-1); EOSINOPHIL (%) 1.1 % (0-5); EOSINOPHIL COUNT 0.1 K/uL (0-0.3); IMMATURE GRANULOCYTE (%) 0.7 % (0.0-0.7); LYMPHOCYTE (%) 38.7 % (15-42); LYMPHOCYTE COUNT 2.4 K/uL (1.0-2.8); MONOCYTE COUNT 1.1 K/uL (0-0.8); NEUTROPHIL COUNT 2.5 K/uL (1.8-6.4)
[2018-01-08 06:43] LABS: ALBUMIN 3.1 G/DL (3.2-4.8); CHLORIDE 95 MEQ/L (99-109); POTASSIUM 3.4 MEQ/L (3.7-5.4); SODIUM 132 MEQ/L (136-147); TOTAL BILIRUBIN 0.5 MG/DL (0.0-1.0)
[2018-01-08 06:44] LABS: HEMATOCRIT 40.6 % (38.0-50.0); HEMOGLOBIN 13.1 G/DL (12.5-16.6); MCH 26.5 PG (29.0-34.0); MCHC 32.3 G/DL (30.0-36.0); MCV 82.2 FL (86-99); PLATELET COUNT 216 K/uL (156-360); RBC DIS.WIDTH-CV 18.7 % (11.8-14.6); RBC DIS.WIDTH-SD 55.4 % (39-53); WHITE BLOOD COUNT 4.8 K/uL (4.1-10.2)
[2018-01-08 06:45] LABS: RED BLOOD COUNT 4.94 M/uL (4.00-5.50)
[2018-01-08 06:49] LABS: ALKALINE PHOSPHATASE 196 IU/L (3-129); ALT (GPT) 10 IU/L (3-49); AST (GOT) 18 IU/L (2-34); CREATININE 1.5 MG/DL (0.6-1.3); GFR ESTIMATE (CALCULATED) > 59 mL/min/ (58.99-99999); GLUCOSE 62 mg/dL (70-99); TOTAL PROTEIN 7.1 G/DL (6.4-8.3); UREA NITROGEN (BUN) 35 mg/dL (9-23)
[2018-01-08 07:08] VITALS: BP 142/76
[2018-01-08 11:00] VITALS: BP 140/77
[2018-01-08 16:30] VITALS: BP 122/80
[2018-01-08 20:23] LABS: CHLORIDE 95 MEQ/L (99-109); CREATININE 1.6 MG/DL (0.6-1.3); GFR ESTIMATE (CALCULATED) 56 mL/min/ (58.99-99999); GLUCOSE 69 mg/dL (70-99); POTASSIUM 3.6 MEQ/L (3.7-5.4); SODIUM 132 MEQ/L (136-147); UREA NITROGEN (BUN) 34 mg/dL (9-23)
[2018-01-08 21:03] VITALS: BP 144/70
[2018-01-09] VITALS (7 sets, daily range): BP systolic 118–164; BP diastolic 57–82
[2018-01-09 07:08] LABS: ALBUMIN 2.8 G/DL (3.2-4.8); CHLORIDE 96 MEQ/L (99-109); CREATININE 1.7 MG/DL (0.6-1.3); GFR ESTIMATE (CALCULATED) 52 mL/min/ (58.99-99999); POTASSIUM 3.4 MEQ/L (3.7-5.4); SODIUM 135 MEQ/L (136-147); UREA NITROGEN (BUN) 35 mg/dL (9-23)
[2018-01-09 07:12] LABS: GLUCOSE 94 mg/dL (70-99); PHOSPHORUS 2.2 mg/dL (2.5-4.9)
[2018-01-10 04:09] VITALS: BP 158/80
[2018-01-10 06:59] LABS: ALBUMIN 2.9 G/DL (3.2-4.8); CHLORIDE 96 MEQ/L (99-109); CREATININE 1.3 MG/DL (0.6-1.3); GFR ESTIMATE (CALCULATED) > 59 mL/min/ (58.99-99999); GLUCOSE 104 mg/dL (70-99); PHOSPHORUS 2.3 mg/dL (2.5-4.9); POTASSIUM 3.1 MEQ/L (3.7-5.4); SODIUM 133 MEQ/L (136-147); UREA NITROGEN (BUN) 28 mg/dL (9-23)
[2018-01-10 07:22] VITALS: BP 128/92
[2018-01-10 11:22] VITALS: BP 123/80
[2018-01-10 16:34] VITALS: BP 112/89
[2018-01-10 22:41] VITALS: BP 170/96
[2018-01-10 23:07] VITALS: BP 183/93
[2018-01-11 04:14] VITALS: BP 154/74
[2018-01-11 06:56] LABS: ALBUMIN 3.4 G/DL (3.2-4.8); CHLORIDE 97 MEQ/L (99-109); CREATININE 1.1 MG/DL (0.6-1.3); GFR ESTIMATE (CALCULATED) > 59 mL/min/ (58.99-99999); PHOSPHORUS 2.3 mg/dL (2.5-4.9); POTASSIUM 4.3 MEQ/L (3.7-5.4); SODIUM 132 MEQ/L (136-147); UREA NITROGEN (BUN) 18 mg/dL (9-23)
[2018-01-11 06:57] LABS: GLUCOSE 71 mg/dL (70-99)
[2018-01-11 07:46] VITALS: BP 130/72
[2018-01-11 11:57] VITALS: BP 146/83
[2018-01-11] MEDS ORDERED: APRESOLINE10 MG PO (14:12)
[2018-01-11] MEDS ORDERED: CARVEDILOL3.125 MG PO (14:12)
[2018-01-11] MEDS ORDERED: POTASSIUM CHLO20 ME2 PO (14:12)
[2018-01-11 16:00] VITALS: BP 165/77
== END 2018-01-11 17:55 | disposition home health service (06) | DRG 388 ==
LOC: EME 16:48 → 5EAST 20:02 → EDOF 20:02 → 4EAST 20:02 → ENRESERV 20:05 → CANRESERV 20:05 → ENRESERV 20:06 → 4EAST 22:26 → ENRESERV 01-07 20:33 → 5EAST 01-07 22:29
PROVIDERS: Emergency Medicine; Hospitalist; Internal Medicine; Internal Medicine Nephrology
DX: K56.600 Partial intestinal obstruction, unspecified as to cause (principal); E43 Unspecified severe protein-calorie malnutrition; Z68.1 Body mass index [BMI] 19.9 or less, adult; N17.9 Acute kidney failure, unspecified; R64 Cachexia; E87.1 Hypo-osmolality and hyponatremia; F11.20 Opioid dependence, uncomplicated; N39.0 Urinary tract infection, site not specified; C78.7 Secondary malignant neoplasm of liver and intrahepatic bile duct; C19 Malignant neoplasm of rectosigmoid junction; E16.2 Hypoglycemia, unspecified; E86.0 Dehydration; K21.9 Gastro-esophageal reflux disease without esophagitis; E87.6 Hypokalemia; E87.8 Other disorders of electrolyte and fluid balance, not elsewhere classified; F17.210 Nicotine dependence, cigarettes, uncomplicated; I11.0 Hypertensive heart disease with heart failure; I16.0 Hypertensive urgency; I48.91 Unspecified atrial fibrillation; I50.9 Heart failure, unspecified; K44.9 Diaphragmatic hernia without obstruction or gangrene; Z91.19 Patient's noncompliance with other medical treatment and regimen; B96.20 Unspecified Escherichia coli [E. coli] as the cause of diseases classified elsewhere; K59.00 Constipation, unspecified; D64.9 Anemia, unspecified; Z93.3 Colostomy status; Z90.49 Acquired absence of other specified parts of digestive tract; Z86.14 Personal history of Methicillin resistant Staphylococcus aureus infection
CPT/HCPCS: 71045; 74018; 74176; 74245; 80048 91; 80053; 80069; 81003; 82948; 83605; 84132 91; 84484; 85025; 85027; 85610; 85730; 87040; 87077; 87086; 87186; 93005; 99281; 99285; J0360; J0696; J0780; J1170; J1644; J1815; J1885; J2765; J3010; J3480; J7030; J7070; S0028

== ENCOUNTER 2018-03-23 12:23 | Emergency (ER) | payer OTHER ==
[~2018-03-23] VITALS: Ht 180.3 cm; Wt 74.6 kg
[~2018-03-23 12:23] MED LIST changes: +APRESOLINE10 MG PO; +CARVEDILOL3.125 MG PO; +SENNA8.6 MG PO
[2018-03-23] MEDS ORDERED: PREDNISONE10 MG PO (13:38)
[2018-03-23 14:35] VITALS: BP 194/107
== END 2018-03-23 14:46 | disposition home or self-care (01) ==
LOC: EME 12:23
DX: T65.6X1A Toxic effect of paints and dyes, not elsewhere classified, accidental (unintentional), initial encounter (principal); L23.4 Allergic contact dermatitis due to dyes; X58.XXXA Exposure to other specified factors, initial encounter; R60.0 Localized edema; Z85.038 Personal history of other malignant neoplasm of large intestine; I11.0 Hypertensive heart disease with heart failure; I50.9 Heart failure, unspecified; Z86.14 Personal history of Methicillin resistant Staphylococcus aureus infection; Z90.49 Acquired absence of other specified parts of digestive tract; Z93.3 Colostomy status; F17.200 Nicotine dependence, unspecified, uncomplicated
CPT/HCPCS: 99281; 99284; J7512